=== PATIENT | male | born 1990 | race Caucasian/White ===

== ENCOUNTER 2023-07-30 13:12 | Emergency (ER) | payer SELFPAY ==
[~2023-07-30] VITALS: Ht 175.3 cm; Wt 97.5 kg
[2023-07-30] MEDS ORDERED: APIX5TAB4 PO (13:29)
[2023-07-30] MEDS ORDERED: DILT60CA3 PO (13:29)
[2023-07-30] MEDS: IV NORMAL SALINE 500 ML BAG IV ONE (14:02)
[2023-07-30 14:52] LABS: BASOPHILS # (AUTO) 0.1 K/UL (0.0-0.2); BASOPHILS % (AUTO) 0.9 % (0.0-2.0); EOSINOPHILS # (AUTO) 0.2 K/uL (0.0-0.7); HEMATOCRIT 31.4 % (36.7-47.1); LYMPHOCYTES # (AUTO) 0.6 K/uL (0.8-4.8); LYMPHOCYTES % (AUTO) 7.8 % (20.5-51.5); MEAN CORPUSCULAR HEMOGLOBIN 22.2 uug (23.8-33.4); MEAN CORPUSCULAR HGB CONC 32 g/dL (32.5-36.3); MONOCYTES # (AUTO) 0.9 K/uL (0.1-1.30); NEUTROPHILS # (AUTO) 6.1 K/uL (1.8-8.9); NEUTROPHILS % (AUTO) 77.3 % (38.5-71.5); PLATELET COUNT (AUTO) 321 K/uL (152-348); RED BLOOD CELL COUNT(AUTO) 4.49 MIL/uL (4.06-5.63); WHITE BLOOD COUNT (AUTO) 7.9 K/uL (3.6-10.2)
[2023-07-30 14:53] LABS: CALCIUM 8.3 mg/dL (8.5-10.1); CARBON DIOXIDE 26 mmol/L (21-32); CHLORIDE 105 mmol/L (98-107); CREATININE 0.9 mg/dL (0.6-1.3); GLUCOSE 116 mg/dL (74-106); POTASSIUM 4.7 mmol/L (3.5-5.1); SODIUM SERUM 138 mmol/L (136-145); UREA NITROGEN, BLOOD 16 mg/dL (7-18)
[2023-07-30 15:06] LABS: ALANINE AMINOTRANSFERASE 30 U/L (16-63); ALBUMIN 3.2 g/dL (3.4-5.0); ALKALINE PHOSPHATASE 71 U/L (50-136); ASPARTATE AMINOTRANSFERASE 22 U/L (15-37); BILIRUBIN,DIRECT < 0.1 mg/dL (0.0-0.2); BILIRUBIN,TOTAL 0.1 mg/dL (0.2-1.0); NT-PRO BNP 15 pg/mL (0-125); TOTAL PROTEIN, SERUM 7.3 g/dL (6.4-8.2)
[2023-07-30 16:52] VITALS: BP 129/80; TEMP 97; O2SAT 99
== END 2023-07-30 16:52 | disposition home or self-care (01) ==
LOC: ER 13:12
DX: R55 Syncope and collapse (principal); R07.89 Other chest pain; I48.91 Unspecified atrial fibrillation; Z79.899 Other long term (current) drug therapy; Z60.2 Problems related to living alone; Z88.1 Allergy status to other antibiotic agents
CPT/HCPCS: 99285; 96360; 70450; 71045; 80076; 80048; 83880; 85025; 84484 ×2; 36415; 93005; J7040; A4606; A4663

== ENCOUNTER 2023-08-22 00:55 | Emergency (ER) | payer SELFPAY ==
[~2023-08-22] VITALS: Ht 175.3 cm; Wt 97.5 kg
[~2023-08-22 00:55] MED LIST: APIX5TAB4 PO; DILT60CA3 PO
[2023-08-22] MEDS ORDERED: ACETAMINOPHEN ES 500 MG TABLET ONE (01:43)
[2023-08-22] MEDS ORDERED: ONDANSETRON ODT 4 MG TAB.RAPDIS ONE (01:44)
[2023-08-22 01:58] LABS: BASOPHILS # (AUTO) 0.2 K/UL (0.0-0.2); BASOPHILS % (AUTO) 2.4 % (0.0-2.0); EOSINOPHILS # (AUTO) 0.3 K/uL (0.0-0.7); EOSINOPHILS % (AUTO) 5.3 % (0.0-7.0); HEMATOCRIT 31.1 % (36.7-47.1); HEMOGLOBIN 9.4 g/dL (12.5-16.3); LYMPHOCYTES # (AUTO) 0.7 K/uL (0.8-4.8); LYMPHOCYTES % (AUTO) 10.4 % (20.5-51.5); MEAN CORPUSCULAR HEMOGLOBIN 21.3 uug (23.8-33.4); MEAN CORPUSCULAR HGB CONC 30 g/dL (32.5-36.3); MEAN CORPUSCULAR VOLUME 70.9 fL (73.0-96.2); MONOCYTES # (AUTO) 0.7 K/uL (0.1-1.30); MONOCYTES % (AUTO) 10.2 % (0.0-11.0); NEUTROPHILS # (AUTO) 4.6 K/uL (1.8-8.9); NEUTROPHILS % (AUTO) 71.7 % (38.5-71.5); PLATELET COUNT (AUTO) 336 K/uL (152-348); RED BLOOD CELL COUNT(AUTO) 4.39 MIL/uL (4.06-5.63); RED CELL DISTRIBUTION WIDTH 18.4 % (12.1-16.2); WHITE BLOOD COUNT (AUTO) 6.4 K/uL (3.6-10.2)
[2023-08-22 02:01] LABS: DIFFERENTIAL COMMENT 1
[2023-08-22 02:08] LABS: CALCIUM 8.5 mg/dL (8.5-10.1); CARBON DIOXIDE 25 mmol/L (21-32); CHLORIDE 104 mmol/L (98-107); GLUCOSE 97 mg/dL (74-106); POTASSIUM 4.2 mmol/L (3.5-5.1); SODIUM SERUM 138 mmol/L (136-145); UREA NITROGEN, BLOOD 12 mg/dL (7-18)
[2023-08-22 02:21] LABS: ALANINE AMINOTRANSFERASE 26 U/L (16-63); ALBUMIN 3.3 g/dL (3.4-5.0); ALKALINE PHOSPHATASE 72 U/L (50-136); ASPARTATE AMINOTRANSFERASE 11 U/L (15-37); BILIRUBIN,TOTAL 0.2 mg/dL (0.2-1.0); NT-PRO BNP 18 pg/mL (0-125); TOTAL PROTEIN, SERUM 7.1 g/dL (6.4-8.2)
[2023-08-22 02:26] LABS: BILIRUBIN,DIRECT < 0.1 mg/dL (0.0-0.2)
[2023-08-22 02:35] LABS: EOSINOPHILS % (MANUAL) 1 % (0-8); LYMPHOCYTES % (MANUAL) 14 % (20-40); MONOCYTES % (MANUAL) 11 % (2-10); NEUTROPHILS % (MANUAL) 74 % (42-75)
[2023-08-22 02:36] LABS: ANISOCYTOSIS 2+; HYPOCHROMASIA 2+; PLATELET ESTIMATE ADEQUATE
[2023-08-22] MEDS ORDERED: AZIT250T13 PO (04:41)
[2023-08-22] MEDS: ACETAMINOPHEN ES 500 MG TABLET PO ONE (04:50)
[2023-08-22] MEDS: ONDANSETRON ODT 4 MG TAB.RAPDIS SL ONE (04:51)
[2023-08-22 04:53] VITALS: BP 118/78; TEMP 97.5; O2SAT 97
== END 2023-08-22 04:52 | disposition home or self-care (01) ==
LOC: ER 00:58
DX: S13.8XXA Sprain of joints and ligaments of other parts of neck, initial encounter (principal); S09.8XXA Other specified injuries of head, initial encounter; R55 Syncope and collapse; R07.89 Other chest pain; J18.9 Pneumonia, unspecified organism; I48.91 Unspecified atrial fibrillation; Z79.899 Other long term (current) drug therapy; Z60.2 Problems related to living alone; Z88.1 Allergy status to other antibiotic agents; X58.XXXA Exposure to other specified factors, initial encounter; Y93.89 Activity, other specified; Y92.89 Other specified places as the place of occurrence of the external cause; Y99.8 Other external cause status
CPT/HCPCS: 36415; 70030-TC; 70450; 71250; 72125; 84484; 85025; 85730; 93005; A4606; A4663; A9150; Q0162

== ENCOUNTER 2023-11-16 02:16 | Emergency (ER) | payer SELFPAY ==
[~2023-11-16] VITALS: Ht 175.3 cm; Wt 102.1 kg
[~2023-11-16 02:16] MED LIST changes: +AZIT250T13 PO
[2023-11-16 02:49] LABS: BASOPHILS # (AUTO) 0.1 K/UL (0.0-0.2); BASOPHILS % (AUTO) 0.8 % (0.0-2.0); EOSINOPHILS # (AUTO) 0.3 K/uL (0.0-0.7); HEMOGLOBIN 11.6 g/dL (12.5-16.3); LYMPHOCYTES # (AUTO) 1.4 K/uL (0.8-4.8); LYMPHOCYTES % (AUTO) 20.3 % (20.5-51.5); MEAN CORPUSCULAR HEMOGLOBIN 22.4 uug (23.8-33.4); MEAN CORPUSCULAR HGB CONC 31 g/dL (32.5-36.3); MEAN CORPUSCULAR VOLUME 71.5 fL (73.0-96.2); MONOCYTES # (AUTO) 1.3 K/uL (0.1-1.30); MONOCYTES % (AUTO) 19.2 % (0.0-11.0); NEUTROPHILS # (AUTO) 3.8 K/uL (1.8-8.9); NEUTROPHILS % (AUTO) 55.7 % (38.5-71.5); PLATELET COUNT (AUTO) 244 K/uL (152-348); RED BLOOD CELL COUNT(AUTO) 5.18 MIL/uL (4.06-5.63); WHITE BLOOD COUNT (AUTO) 6.9 K/uL (3.6-10.2)
--- NOTE | 2023-11-16 02:50 | NUR ---
Pt out of ER for CT.
[2023-11-16 02:59] LABS: DIFFERENTIAL COMMENT 1
[2023-11-16 03:03] LABS: CALCIUM 8.7 mg/dL (8.5-10.1); CARBON DIOXIDE 28 mmol/L (21-32); CHLORIDE 104 mmol/L (98-107); CREATININE 0.9 mg/dL (0.6-1.3); GLUCOSE 110 mg/dL (74-106); POTASSIUM 4.3 mmol/L (3.5-5.1); SODIUM SERUM 139 mmol/L (136-145); UREA NITROGEN, BLOOD 11 mg/dL (7-18)
[2023-11-16 03:16] LABS: ALANINE AMINOTRANSFERASE 42 U/L (16-63); ALBUMIN 3.5 g/dL (3.4-5.0); ALKALINE PHOSPHATASE 85 U/L (50-136); ASPARTATE AMINOTRANSFERASE 22 U/L (15-37); BILIRUBIN,TOTAL 0.3 mg/dL (0.2-1.0); NT-PRO BNP 15 pg/mL (0-125); TOTAL PROTEIN, SERUM 6.9 g/dL (6.4-8.2)
[2023-11-16 03:23] LABS: *BILIRUBIN,URIN NEGATIVE (NEGATIVE); *BLOOD, URINE NEGATIVE (NEGATIVE); *CLARITY,URINE CLEAR (CLEAR); *COLOR,URINE YELLOW (YELLOW); *KETONES,URINE NEGATIVE (NEGATIVE); *PROTEIN,URINE NEGATIVE (NEGATIVE); *UROBILINOGEN,URINE 0.2 E.U./dl (NORMAL); LEUKOCYTE ESTERASE ,URINE NEGATIVE (NEGATIVE); NITRITE, URINE NEGATIVE (NEGATIVE); PH,URINE 7.5 (5.0-8.0); UGLUCOSE NEGATIVE (NEGATIVE)
[2023-11-16 03:33] LABS: *AMPHETAMINE, URINE NEGATIVE (NEGATIVE); *BARBITURATE, URINE NEGATIVE (NEGATIVE); *BENZODIAZEPINE, URINE NEGATIVE (NEGATIVE); *CANNABINOID, URINE NEGATIVE (NEGATIVE); *COCCAINE, URINE NEGATIVE (NEGATIVE); *OPIATE, URINE NEGATIVE (NEGATIVE); *PHENCYCLIDINE SCREEN,URINE NEGATIVE (NEGATIVE); FENTANYL, URINE NEGATIVE (NEGATIVE)
[2023-11-16 03:37] LABS: ETHANOL < 3 MG/DL (0-10)
[2023-11-16 03:55] LABS: ANISOCYTOSIS 2+; EOSINOPHILS % (MANUAL) 3 % (0-8); HYPOCHROMASIA 2+; LYMPHOCYTES % (MANUAL) 22 % (20-40); MONOCYTES % (MANUAL) 17 % (2-10); NEUTROPHILS % (MANUAL) 58 % (42-75); PLATELET ESTIMATE ADEQUATE
--- NOTE | 2023-11-16 06:45 | NUR ---
Patient discharged to home in stable condition. Written and verbal after care instructions given. Patient verbalizes understanding of instructions. Stressed follow up or return to ER for worsening s/s. Pt out of ER with steady gait, no acute signs of distress, VSS, all belongings taken, provided with copies of lab and ct results.
[2023-11-16 06:46] VITALS: BP 138/88; O2SAT 97
== END 2023-11-16 06:46 | disposition home or self-care (01) ==
LOC: ER 02:22
DX: R07.89 Other chest pain (principal); R55 Syncope and collapse; Z86.73 Personal history of transient ischemic attack (TIA), and cerebral infarction without residual deficits; I48.91 Unspecified atrial fibrillation; Z79.899 Other long term (current) drug therapy; Z60.2 Problems related to living alone; Z88.1 Allergy status to other antibiotic agents; Z91.040 Latex allergy status
CPT/HCPCS: 36415; 70030-TC; 70450; 71045; 83735; 84484; 85025; 85610; 85730; 93005; A4606; A4663; G0480

== ENCOUNTER 2024-12-08 06:47 | Emergency (ER) | payer SELFPAY ==
[~2024-12-08] VITALS: Ht 175.3 cm; Wt 108.9 kg
[2024-12-08 06:47] VITALS: BP 149/91
[2024-12-08 09:08] VITALS: BP 131/77
== END 2024-12-08 09:09 | disposition home or self-care (01) ==
LOC: ER 06:47
DX: S06.0X0A Concussion without loss of consciousness, initial encounter (principal); M54.2 Cervicalgia; I48.91 Unspecified atrial fibrillation; Z79.01 Long term (current) use of anticoagulants; Z79.899 Other long term (current) drug therapy; Z86.73 Personal history of transient ischemic attack (TIA), and cerebral infarction without residual deficits; Z88.8 Allergy status to other drugs, medicaments and biological substances; Z60.2 Problems related to living alone; W01.10XA Fall on same level from slipping, tripping and stumbling with subsequent striking against unspecified object, initial encounter; Y93.89 Activity, other specified; Y92.89 Other specified places as the place of occurrence of the external cause; Y99.8 Other external cause status
CPT/HCPCS: 99284; 70450; 72125; J7040; A4606; A4663

== ENCOUNTER 2024-12-19 18:41 | Emergency (ER) | payer SELFPAY ==
[~2024-12-19] VITALS: Ht 175.3 cm; Wt 111.1 kg
[2024-12-19 20:30] VITALS: BP 133/83
[2024-12-19 20:54] LABS: PLATELET COUNT (AUTO) 282 K/uL (152-348); RED BLOOD CELL COUNT(AUTO) 5.22 MIL/uL (4.06-5.63); RED CELL DISTRIBUTION WIDTH 22.9 % (12.1-16.2); WHITE BLOOD COUNT (AUTO) 9.9 K/uL (3.6-10.2)
[2024-12-19 21:10] LABS: CREATININE 0.7 mg/dL (0.6-1.3); SODIUM SERUM 141 mmol/L (136-145); UREA NITROGEN, BLOOD 9 mg/dL (7-18)
[2024-12-19 21:15] LABS: ASPARTATE AMINOTRANSFERASE 19 U/L (15-37); TOTAL PROTEIN, SERUM 7.7 g/dL (6.4-8.2)
[2024-12-19 21:39] LABS: LYMPHOCYTES % (MANUAL) 4 % (20-40); MONOCYTES % (MANUAL) 11 % (2-10); NEUTROPHILS % (MANUAL) 85 % (42-75); PLATELET ESTIMATE ADEQUATE
[2024-12-19 21:41] VITALS: BP 128/85; TEMP 98; O2SAT 98
== END 2024-12-19 21:42 | disposition home or self-care (01) ==
LOC: ER 18:41
DX: S06.9X0A Unspecified intracranial injury without loss of consciousness, initial encounter (principal); R07.89 Other chest pain; R55 Syncope and collapse; F17.290 Nicotine dependence, other tobacco product, uncomplicated; R06.2 Wheezing; I11.9 Hypertensive heart disease without heart failure; Z79.01 Long term (current) use of anticoagulants; Z79.899 Other long term (current) drug therapy; Z86.73 Personal history of transient ischemic attack (TIA), and cerebral infarction without residual deficits; Z88.8 Allergy status to other drugs, medicaments and biological substances; Z60.2 Problems related to living alone; W18.39XA Other fall on same level, initial encounter; Y93.89 Activity, other specified; Y92.89 Other specified places as the place of occurrence of the external cause; Y99.9 Unspecified external cause status
CPT/HCPCS: 36415; 70030-TC; 70450; 71045; 84443; 84484; A4606; A4663